=== PATIENT | female | born 1990 | race Caucasian/White ===

== ENCOUNTER 2021-08-06 11:55 | Emergency (ER) | payer OTHER ==
[2021-08-06] MEDS ORDERED: Ativan 1 MG PO ONE (12:33)
[2021-08-06] MEDS ORDERED: Ativan 1 MG ONE (12:41)
--- NOTE | 2021-08-06 13:24 | ERPHSYRPT ---
- History of Present Illness Time Seen by Provider: 08/06/21 12:12 Source: patient Exam Limitations: no limitations Patient Subjective Stated Complaint: pt here for anxiety, she is under a lot of stress, she states for last hour she has been very anxious . Triage Nursing Assessment: pt alert, resp easy, skin w/d/p. no edema, face mask in place , sees a therapist but did not call her Physician History: 31 years old female with history of anxiety, depression presented in the ER with sudden onset feeling very anxious while she was driving earlier followed by feeling of warm all over, tingly sensation, feeling as if everything was closing on her followed by cold chills and whole thing lasting for almost 10 minutes and then started to improve. It happened couple of times prior to arrival. Denies any chest pain or shortness of breath but did have some palpitations. Reports symptoms similar to last time when she had a panic attack. She does take Xanax and last dose was yesterday and did not take anything today does report going through a lot of stress currently. No fever chills or sick contact reported. Currently feeling much better. Timing/Duration: today, intermittent, sudden, improved Severity: moderate Associated Symptoms: denies symptoms Allergies/Adverse Reactions: pertussis vaccine,adsorbed [Pertussis Vaccine,Adsorbed] Allergy (Mild, Verified 08/06/21 12:07) Tetanus Vaccines and Toxoid [Tetanus] Allergy (Mild, Verified 08/06/21 12:07) morphine Adverse Reaction (Verified 08/06/21 12:08) Home Medications: Citalopram Hydrobromide [ceLEXa] 40 mg PO DAILY 07/10/14 [History] ALPRAZolam [Alprazolam] 1 ea DAILY 08/06/21 [History] Hx Tetanus, Diphtheria Vaccination/Date Given: Yes Hx Influenza Vaccination/Date Given: No Hx Pneumococcal Vaccination/Date Given: No Immunizations Up to Date: Yes Travel Risk - International Travel Have you traveled outside of the country in past 3 weeks: No - Coronavirus Screening Are you exhibiting any of the following symptoms?: No Close contact with a COVID-19 positive Pt in past 14-21 Days: No - Vaccine Status Have you recieved a Covid-19 vaccination: Yes 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: [employer] - Vaccination Dates Date of 2cond Vaccination (if applicable): dec 2020 - Review of Systems Constitutional: No Symptoms Eyes: No Symptoms Ears, Nose, & Throat: No Symptoms Respiratory: No Symptoms Cardiac: No Symptoms Abdominal/Gastrointestinal: No Symptoms Genitourinary Symptoms: No Symptoms Musculoskeletal: No Symptoms Psychological: Anxiety, Depression, No Suicidal Ideations, No Homicidal Ideations Endocrine: No Symptoms Hematologic/Lymphatic: No Symptoms Immunological/Allergic: No Symptoms - Past Medical History Pertinent Past Medical History: Yes Respiratory History: Asthma, Pneumonia Psycho-Social History: Anxiety, Depression - Past Surgical History Past Surgical History: Yes Gastrointestinal: Cholecystectomy Other Surgical History: T & A - Social History Smoking Status: Current every day smoker How long have you smoked: 6 YEARS Exposure to second hand smoke: No Drug Use: none Patient Lives Alone: Yes - Female History Hx Last Menstrual Period: last month Hx Now: No - Nursing Vital Signs Nursing Vital Signs: Initial Vital Signs Temperature 98.1 F 08/06/21 12:02 Pulse Rate 90 08/06/21 12:02 Respiratory Rate 18 08/06/21 12:02 Blood Pressure 132/85 08/06/21 12:02 O2 Sat by Pulse Oximetry 97 08/06/21 12:02 Pain Scale Pain Intensity 0 - Physical Exam General Appearance: no apparent distress, alert, anxiety Eye Exam: PERRL/EOMI, eyes nml inspection Ears, Nose, Throat Exam: normal ENT inspection, TMs normal, pharynx normal, moist mucous membranes Neck Exam: normal inspection, non-tender, full range of motion Respiratory Exam: normal breath sounds, lungs clear Cardiovascular Exam: regular rate/rhythm, normal heart sounds Gastrointestinal/Abdomen Exam: soft, normal bowel sounds, No tenderness Back Exam: normal inspection, normal range of motion Extremity Exam: normal inspection, normal range of motion Neurologic Exam: alert, oriented x 3, cooperative, 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 as tested, nml cerebellar function, nml station & gait, sensation nml, No normal mood/affect (Anxious), No motor deficits Skin Exam: normal color SpO2 Interpretation: normal SpO2: 97 O2 Delivery: Room Air Ordered Tests: Medication Summary Discontinued Medications Generic Name Dose Route Start Last Admin Trade Name Freq PRN Reason Stop Dose Admin Lorazepam 1 mg 08/06/21 12:33 08/06/21 12:43 Ativan 1 Mg PO 08/06/21 12:34 1 mg STAT ONE Administration Lorazepam Confirm 08/06/21 12:41 Ativan 1 Mg Administered 08/06/21 12:42 Dose 1 mg .ROUTE .STK-MED ONE - Progress Progress: improved Progress Note: 08/06/21 13:24 Patient is feeling better on presentation. No chest pain or shortness of breath. Symptoms similar to last time when she had a panic attack. She is given Ativan in here and is at her baseline. She is advised to continue with her Xanax as recommended and outpatient follow-up. Discussed signs of worsening needing return to ER which he seems understanding. At this point I do not think she needs any other work-up and is stable for discharge Counseled pt/family regarding: diagnosis, need for follow-up - Departure Departure Disposition: Home Clinical Impression: Anxiety Condition: Stable Critical Care Time: No Referrals: ALEXX LICEA NP [Primary Care Provider] - Follow Up with PCP/3 days Instructions: Anxiety, Adult (DC) Additional Instructions: Continue with alprazolam/Xanax as prescribed. Return to ER for worsening anxiety or if develop chest pain palpitations or shortness of breath.
[2021-08-06 13:28] VITALS: BP 104/73; PULSE 79
[2021-08-06 13:30] VITALS: O2SAT 97
== END 2021-08-06 13:33 | disposition home or self-care (01) ==
LOC: ED 11:55
DX: F41.9 Anxiety disorder, unspecified (principal); Z79.899 Other long term (current) drug therapy
CPT/HCPCS: 99283; A9270-GY